=== PATIENT | female | born 1990 | race Two or more races ===

== ENCOUNTER 2022-05-10 03:17 | Emergency (ER) | payer BC ==
[~2022-05-10] VITALS: Ht 154.9 cm; Wt 54.4 kg
[2022-05-10 03:20] VITALS: BP 115/76
--- NOTE | 2022-05-10 03:23 | NUR ---
TO LOBBY A/W BED AMBULATORY
--- NOTE | 2022-05-10 03:58 | NUR ---
PATIENT LEFT WITHOUT BEING SEEN BY DR. CHEN. NO FURTHER CARE PROVIDED FOR PATIENT.
== END 2022-05-10 03:58 | disposition left against medical advice (07) ==
LOC: MED 03:17
DX: R10.84 Generalized abdominal pain (principal); Z53.21 Procedure and treatment not carried out due to patient leaving prior to being seen by health care provider

== ENCOUNTER 2022-06-30 12:55 | Emergency (ER) | payer BC ==
[~2022-06-30] VITALS: Ht 157.5 cm; Wt 65.3 kg
[2022-06-30 13:04] VITALS: BP 116/61
--- NOTE | 2022-06-30 13:27 | NUR ---
Ev petersen in [facility] - 06/30/22 at 1336 by BERTRANDMD SWABS WALKED AND HANDED TO LAB
[2022-06-30 14:21] LABS: BILIRUBIN,URINE NEGATIVE (NEGATIVE); BLOOD, URINE NEGATIVE (NEGATIVE); COLOR,URINE YELLOW (YELLOW); LEUKOCYTE ESTERASE ,URINE TRACE (NEGATIVE); NITRITE, URINE NEGATIVE (NEGATIVE); UGLUCOSE NEGATIVE (NEGATIVE)
[2022-06-30 14:25] LABS: APPEARANCE,URINE HAZY (CLEAR)
[2022-06-30 14:46] LABS: RBC,URINE NONE SEEN /HPF (0-5)
--- NOTE | 2022-06-30 14:55 | NUR ---
PT CALLED IN LOBBY. NO ANSWER. ERMD AWARE
--- NOTE | 2022-06-30 15:20 | NUR ---
PT ELOPED AT THIS TIME.
== END 2022-06-30 15:20 | disposition left against medical advice (07) ==
LOC: MED 12:55
DX: R42 Dizziness and giddiness (principal); R11.0 Nausea; Z53.21 Procedure and treatment not carried out due to patient leaving prior to being seen by health care provider
CPT/HCPCS: 76805; 81001; 81025; 87086; 99281